=== PATIENT | male | born 1990 | race Two or more races ===

== ENCOUNTER 2022-03-27 13:26 | Emergency (ER) | payer MEDICAID, SELFPAY ==
--- NOTE | 2022-03-27 15:43 | ED_ITS ---
HPI - General Adult General Chief complaint: Skin/Abscess/Foreign Body Stated complaint: bump under left ear Time Seen by Provider: 03/27/22 15:43 Source: patient Mode of arrival: ambulatory Limitations: no limitations History of Present Illness HPI narrative: Patient is a 32 year old male presenting to the emergency department today with a left ear abscess. Patient states that since last , he has had swelling to the base of his left ear, causing pain. Patient states that it started as a small bump and it has now gotten bigger. Patient denies any dizziness, lightheadedness, abdominal pain, nausea, vomiting, fever, chills, blurry vision, double vision, loss of vision, chest pain, difficulty breathing, shortness of breath, back pain, night sweats, pain with urination, increased urinary f requency, increased urinary urgency, blood in his urine or stool, syncope or a near syncopal episode, recent trauma or falls, bowel incontinence, bladder incontinence, bowel retention, bladder retention, or any other complaints at this time. Onset (ago): day(s) (3) Severity: mild Severity scale (1-10): 3 Quality: aching Pain Consistency: constant Relieving factors: none Exacerbating factors: none Associated symptoms: denies other symptoms Treatments prior to arrival: none Related Data Previous Rx's Medication Instructions Recorded sulfamethoxazole 800 1 tab PO BID 7 days #14 tabs 03/27/22 mg-trimethoprim 160 mg tablet (Bactrim DS) Allergies Allergy/AdvReac Type Severity Reaction Status Date / Time doxycycline [DOXYCYCLINE] Allergy Unknown UNKNOWN Unverified 05/13/20 16:51 ibuprofen [IBUPROFEN] Allergy Unknown SWELLING Unverified 05/13/20 16:51 Penicillins Allergy Angioedema Verified 03/27/22 15:49 Review of Systems Constitutional: Constitutional: Reports no additional constitutional complaints, Denies chills, Denies fever(s) and Denies night sweats Eyes: Eyes: Reports no additional eye complaints, Denies blurry vision, Denies change in vision, Denies diplopia, Denies eye discharge, Denies loss of vision and Denies eye pain ENT: Denies dizziness Comments: abscess just below left ear Cardiovascular: Cardiovascular: Reports no additional cardiovascular complaints, Denies chest pain, Denies lightheadedness, Denies Loss of Consciousness and Denies dyspnea Respiratory: Respiratory: Reports no additional respiratory complaints and Denies dyspnea Gastrointestinal: Gastrointestinal: Reports no additional gastrointestinal complaints, Denies abdominal pain, Denies melena, Denies hematochezia, Denies change in bowel habits and Denies change in stool character Genitourinary: Genitourinary: Reports no additional male genitourinary complaints, Denies hematuria, Denies oliguria, Denies difficulty urinating, Denies dysuria, Denies urinary frequency, Denies urinary hesitancy, Denies urinary incontinence and Denies urinary urgency Musculoskeletal: Musculoskeletal: Reports no additional musculoskeletal complaints, Denies numbness and Denies tingling Neurologic: Denies dizziness, Denies loss of vision, Denies numbness and Denies tingling Psychiatric: Psychiatric: Reports no additional psychiatric complaints Endocrine: Endocrine: Reports no additional endocrine complaints Hematologic/Lymphatic: Hematologic/Lymphatic: Reports no additional hematologic/lymphatic complaints Allergic/Immunologic: Allergic/Immunologic: Reports no additional allergic/immunologic complaints PMFSH Past Medical History Attestation statement: The following information was validated with the patient. Source: old records reviewed Social History Social History Alcohol intake: current Alcohol intake frequency: holidays/special occasions only Patient Tobacco Use Status: Never used Tobacco Use of substances other than those prescribed or required for medical reasons: No Advance Directives: No Advance Directives Information Provided: No Physical Exam ED Vital Signs: Vital Signs - 24 hr 03/27/22 15:44 Temperature 97.6 F Pulse Rate 79 Respiratory Rate 16 Blood Pressure 116/65 Pulse Oximetry 99 Oxygen Delivery Method Room Air BMI result Body Mass Index 18.4 Const General: cooperative, no acute distress, alert and awake Nutritional Appearance: well nourished Orientation/consciousness: patient oriented x3 Limitations: no limitations [facility] Head: Yes normal to inspection and Yes atraumatic Ears: hearing grossly normal bilaterally and external ears normal General nose exam: Normal external nose present, no nasal discharge noted and no epistaxis Face and sinus: Yes normal facial exam, No abrasion and No laceration Mouth: Normal oral and palatal mucosa present, no drooling and no muffled voice Eyes General: appearance normal, both eyes and all related structures Periorbital: periorbital findings normal Eyelids: Yes eyelids normal Conjunctivae: conjunctivae normal Pupils: Equal, round and reactive pupils present EOM: EOMs intact bilaterally Neck Neck: Yes normal visual inspection, Yes full ROM and Yes no lymphadenopathy Chest Chest palpation & inspection: normal inspection of the chest Resp Effort & Inspection: normal respiratory effort and able to speak in complete sentences Auscultation: clear to auscultation bilaterally Cardio Rate: regular rate Rhythm: regular rhythm GI Inspection: Yes normal to inspection Skin Other: 2cm abscess present just inferior of the left ear lobe Neuro General: patient oriented x3 and moves all extremities Cranial nerves: Yes Equal, round and reactive pupils present Cognition (Neuro): normal cognition Motor exam (neuro): 5/5 motor strength present throughout Sensory Exam: Normal double simultaneous stimulation for sensation Coordination: [id number] test normal Extrem General: Yes normal to inspection, Yes full ROM and Yes capillary refill normal Psych Appearance: grossly normal Mental Status: mental status grossly normal Affect: normal affect Attitude: cooperative Thought process: Normal thought process present Thought content: Normal thought content present Insight: Good insight present (Psych) Procedures Abscess I/D Site: face Side (if applicable): left Local Anesthetic: lidocaine 1% Amount of anesthesia used (mL): 2 Technique: incised with blade Amount of fluid expressed (mL): 15 Sent for culture/gram staining?: No Irrigation: No Packing used?: none Medical Decision Making MDM Narrative Medical decision making narrative: Patient is a 32 year old male presenting to the emergency department today with a left ear abscess. Patient's physical exam showed a 2cm abscess just inferior of the left ear lobe. I explained my physical exam findings to the patient. I answered all questions asked by the patient. Patient's abscess was incised and drained, without incident. I stressed the importance of the patient taking his medication as prescribed. I stressed the importance of the patient following up with his primary care provider. I stressed the importance of the patient returning to the emergency department immediately if his symptoms were to worsen or if he were to develop any dizziness, shortness of breath, difficulty breathing, chest pain, blurry vision, loss of vision, nausea, vomiting, abdo natalie pain, fever, chills, back pain, or any other complaints. Patient verbalized agreement and understanding with this treatment plan and discharge. Differential Diagnosis Differential Diagnosis: ear abscess Medical Records Medical records reviewed: Yes I reviewed the patient's medical records. Discharge Plan Discharge Clinical Impression: Abscess Patient Disposition: Home, Self-Care Instructions: Abscess Incision and Drainage (DC) Additional Instructions: Follow up with your primary care provider. Return to the emergency department immediately if your symptoms worsen or if you develop any dizziness, shortness of breath, difficulty breathing, chest pain, blurry vision, loss of vision, nausea, vomiting, abdominal pain, fever, chills, back pain, or any other complaints. Prescriptions: New sulfamethoxazole-trimethoprim [Bactrim DS] 800-160 mg tablet 1 tab PO BID 7 Days Qty: 14 0RF Referrals: Dinora Sahu MD [Primary Care Provider] - Stand Alone Forms: Work/School Release Interventions: ED Discharge Assessment Last Done: 03/27/22 16:41 Discharge Date/Time: 03/27/22 16:42 Print Language: Kazakh
[2022-03-27 15:44] VITALS: BP 116/65; PULSE 79; RESP 16; TEMP 36.4; O2SAT 99; BMI 18.4
== END 2022-03-27 16:42 | disposition home or self-care (01) ==
PROVIDERS: Emergency Provider Emergency Medicine; PCP Internal Medicine
DX: H66.42 Suppurative otitis media, unspecified, left ear (principal); Z79.899 Other long term (current) drug therapy
CPT/HCPCS: 10060; 99283; 99284

== ENCOUNTER → 2022-07-05 14:05 | Outpatient (BNVA) | payer MEDICAID, SELFPAY | PROVIDERS: PCP Internal Medicine; Visit Provider Physician Assistant | DX: Z02.1 Encounter for pre-employment examination (principal) ==

== ENCOUNTER 2023-08-07 06:37 | Emergency (ER) | payer SELFPAY ==
[2023-08-07 06:41] VITALS: BP 124/78; PULSE 82; RESP 22; TEMP 36.6; O2SAT 100; BMI 19.2
--- NOTE | 2023-08-07 07:10 | PC.NURSE ---
Pt feels he is having an allergic reaction, to maybe something in his uber. Stable on RA, able to spek in full sentences
--- NOTE | 2023-08-07 07:12 | ED.ALLEREA ---
HPI - Allergic Reaction General Chief complaint: Allergic Reaction Stated complaint: ?Allergic Reaction Time Seen by Provider: 08/07/23 07:05 Source: patient and RN notes reviewed Mode of arrival: ambulatory Limitations: no limitations History of Present Illness HPI narrative: This is a 33-year-old male, with a history of hereditary angioedema, presenting to the emergency department for evaluation of itchy throat, chest tightness and shortness of breath since this morning. 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 He states that he immediately felt short of breath. He states that this feels like his previous allergic reactions he has had in the past. He has not taken any medications prior to his arrival. No other complaints or concerns at this time. MD complaint: allergic reaction and facial swelling Known history of allergy to: Cat and dog dander, ibuprofen, doxycycline, penicillin, prednisone Symptoms: difficulty swallowing, difficulty breathing and hoarseness Severity: moderate Treatment prior to arrival: none Previous Allergic Reaction History: angioedema Related Data Previous Rx's Medication Instructions Recorded sulfamethoxazole 800 1 tab PO BID 7 days #14 tabs 03/27/22 mg-trimethoprim 160 mg tablet (Bactrim DS) epinephrine 0.3 mg/0.3 mL 0.3 mg (0.3 mL) IM Q4H PRN 08/07/23 injection, auto-injector (EpiPen anaphylaxis #2 ea 2-Efra) Allergies Allergy/AdvReac Type Severity Reaction Status Date / Time doxycycline [DOXYCYCLINE] Allergy Unknown UNKNOWN Verified 08/07/23 07:18 ibuprofen [IBUPROFEN] Allergy Unknown SWELLING Verified 08/07/23 07:18 aspirin Allergy Angioedema Verified 08/07/23 07:18 cat dander [cats] Allergy Hives Verified 08/07/23 07:18 dog dander [dogs] Allergy Hives Verified 08/07/23 07:18 Penicillins Allergy Angioedema Verified 08/07/23 07:18 Review of Systems Review of Systems: Yes all other systems are reviewed and are negative Constitutional: Constitutional: Reports as per [facility] Social History Social History Alcohol intake: current Alcohol intake frequency: holidays/special occasions only Patient Tobacco Use Status: Never used Tobacco Smoked in Last 30 Days: No Advance Directives: No Advance Directives Information Provided: Yes Physical Exam ED Vital Signs: Vital Signs - 24 hr 08/07/23 06:41 08/07/23 10:00 Temperature 97.9 F Pulse Rate 82 Respiratory Rate 22 H Blood Pressure 124/78 128/72 Pulse Oximetry 100 100 Oxygen Delivery Method Room Air Room Air BMI result Body Mass Index 19.2 Const General: cooperative, comfortable and no acute distress Orientation/consciousness: patient oriented x3 Limitations: no limitations HENMT Other: Airway patent. no tongue edema, no oropharyngeal edema noted Head: Yes normal to inspection, Yes normocephalic and Yes atraumatic Ears: hearing grossly normal bilaterally General nose exam: Normal external nose present Face and sinus: Yes normal facial exam Mouth: Normal oral and palatal mucosa present, oropharynx normal and moist mucous membranes Throat: Yes posterior oropharynx normal Eyes General: appearance normal, both eyes and all related structures Eyelids: Yes eyelids normal Conjunctivae: conjunctivae normal Sclerae: sclerae normal Pupils: Equal, round and reactive pupils present EOM: EOMs intact bilaterally Neck Neck: Yes normal visual inspection, Yes full ROM and Yes no lymphadenopathy Lymphatic: no lymphadenopathy noted Chest Chest palpation & inspection: normal inspection of the chest Resp Effort & Inspection: normal respiratory effort and able to speak in complete sentences Auscultation: clear to auscultation bilaterally, no crackles, no rales, no rhonchi and no wheezes Cardio Rate: regular rate Rhythm: regular rhythm Heart sounds: S1 normal heart sound present and S2 normal heart sound present GI Inspection: Yes normal to inspection Skin General skin exam: no rashes or lesions noted Trauma: no lacerations or abrasions Wounds: no wounds Neuro General: patient oriented x3 and moves all extremities Cranial nerves: Yes Equal, round and reactive pupils present Extrem General: Yes normal to inspection Right upper extremity: normal to inspection Left upper extremity: normal to inspection Right lower extremity: normal to inspection Left lower extremity: normal to inspection Course Reevaluation(s) Reevaluation #1: Patient asleep, resting comfortably, on her no acute distress. Will continue to monitor Time: 07:43 Reevaluation #2: Patient re-evaluated, feeling much better, lungs clear to auscultation bilaterally, airway patent. Patient feels well and is feeling comfortable to go home. Patient has a ride home from his fiancee. Patient stable for discharge. Time: 09:41 Medications Administered Discontinued Medications Generic Name Dose Route Start Last Admin Trade Name Emmanuel PRN Reason Stop Dose Admin Diphenhydramine HCl 50 mg 08/07/23 07:11 08/07/23 07:18 Diphenhydramine Hcl 50 Mg/Ml Vial IVPUSH 08/07/23 07:12 50 mg ONCE ONE Administration Famotidine 20 mg 08/07/23 07:11 08/07/23 07:18 Famotidine/Pf 20 Mg/2 Ml Vial IVPUSH 08/07/23 07:12 20 mg ONCE ONE Administration Medical Decision Making Medical Decision Making MDM Narrative: This is a 33-year-old male, with history of hereditary angioedema, presenting to the emergency department for evaluation of allergic reaction. He states that while he was taken liver to work in this morning is exposed to dogs and cat dander. He feels as though his throat is itchy is feeling short of breath. Patient is speaking in full sentences, however patient reporting hoarseness in his voice. On arrival, vital signs within normal limits, respirations 22 per minute. Lungs are clear to auscultation. Plan: IV Benadryl, IV Pepcid. Patient reports allergy to prednisone. Differential Diagnosis Differential Diagnoses: The differential diagnosis associated with the presentation includes Allergic reaction, angioedema, anaphylaxis, anxiety Discharge Plan Discharge Clinical Impression: Allergic reaction Patient Disposition: Home, Self-Care Instructions: General Allergic Reaction (ED) Additional Instructions: Your seen in the emergency department after having allergic reaction. You were given Benadryl and pepcid. Please drink plenty of fluids and get plenty of rest. Monitor symptoms closely. 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 If any new or worsening symptoms occur including but not limited to throat swelling, difficulty breathing or swallowing, please immediately reports to the emergency room. I am also giving you a medication refill for your EpiPen. Please use as prescribed and as needed. Also giving your referral to [employer] electrical logging operator, call to make an appointment. Prescriptions: New epinephrine [EpiPen 2-Efra] 0.3 mg/0.3 mL auto-injector 0.3 mg IM Q4H PRN (Reason: anaphylaxis) Qty: 2 0RF No Action sulfamethoxazole-trimethoprim [Bactrim DS] 800-160 mg tablet 1 tab PO BID 7 Days Qty: 14 0RF Referrals: Daljit Araujo MD [Physician] - Stand Alone Forms: Work/School Release Interventions: ED Discharge Assessment Last Done: 08/07/23 10:06 Discharge Date/Time: 08/07/23 10:06
[2023-08-07] MEDS: Famotidine/PF 20 MG/2 ML VIAL IVPUSH (07:18)
[2023-08-07] MEDS: diphenhydrAMINE HCL 50 MG/ML VIAL IVPUSH (07:18)
[2023-08-07 10:00] VITALS: BP 128/72; O2SAT 100
== END 2023-08-07 10:06 | disposition home or self-care (01) ==
PROVIDERS: Emergency Provider Emergency Medicine Emergency Medical Services; PCP Internal Medicine
DX: L50.0 Allergic urticaria (principal); Z79.899 Other long term (current) drug therapy
CPT/HCPCS: 96374; 96375; 99284; J1200

== ENCOUNTER 2023-12-22 06:14 | Emergency (ER) | payer SELFPAY ==
[2023-12-22 06:18] VITALS: BP 114/78; PULSE 93; RESP 14; TEMP 36; O2SAT 99; BMI 18.8
--- NOTE | 2023-12-22 06:52 | ED_ITS ---
HPI - Eye Problem General Chief complaint: Eye Problems Stated complaint: Eye swelling Time Seen by Provider: 12/22/23 06:32 Source: patient Mode of arrival: ambulatory Limitations: no limitations History of Present Illness HPI Narrative: 33 yo male with history of angioedema presents to the ER for evaluation of left upper eyelid swelling and pain for the last 6 days. He states it started as a small stye and has gotten worse despite using warm compresses to the area. He has not been able to wear his contacts for the last 5 days. He has worsening upper lid swelling, foreign body sensation and irritation of the eye. No vision changes. He woke up with crusting and worsening swelling this morning. No history of trauma. MD chief complaint: eye pain, eye redness and foreign body Onset (ago): day(s) (6) Onset description: gradual Duration: constant Location: left eye Eye Symptoms: redness, pain, foreign body sensation and discharge Place: home Mechanism: none Severity: moderate If Pain, Quality: aching and throbbing Context: contact lens use Associated symptoms: none Treatments Prior to Arrival: other (warm compresses) Related Data Previous Rx's ?Medication ?Instructions ?Recorded sulfamethoxazole 800 1 tab PO BID 7 days #14 tabs 03/27/22 mg-trimethoprim 160 mg tablet (Bactrim DS) epinephrine 0.3 mg/0.3 mL 0.3 mg (0.3 mL) IM Q4H PRN 08/07/23 injection, auto-injector (EpiPen anaphylaxis #2 ea 2-Efra) erythromycin 5 mg/gram (0.5 %) eye 0.5 inch ophthalmic (eye) BID #3.5 12/22/23 ointment grams sulfamethoxazole 400 1 tab PO BID #14 tabs 12/22/23 mg-trimethoprim 80 mg tablet (Bactrim) Allergies Allergy/AdvReac Type Severity Reaction Status Date / Time doxycycline [DOXYCYCLINE] Allergy Unknown UNKNOWN Verified 12/22/23 06:21 ibuprofen [IBUPROFEN] Allergy Unknown SWELLING Verified 12/22/23 06:21 aspirin Allergy Angioedema Verified 12/22/23 06:21 cat dander [cats] Allergy Hives Verified 12/22/23 06:21 dog dander [dogs] Allergy Hives Verified 12/22/23 06:21 Penicillins Allergy Angioedema Verified 12/22/23 06:21 Review of Systems Review of Systems: Yes all other systems are reviewed and are negative [facility] Social History Social History Alcohol intake: current Alcohol intake frequency: holidays/special occasions only Patient Tobacco Use Status: Never used Tobacco Advance Directives: No Advance Directives Information Provided: Yes Do you have a plan to hurt others: No Plan Physical Exam Vital Signs: Vital Signs: Last Vital Signs Temp 96.8 F 12/22/23 06:18 Pulse 93 12/22/23 06:18 Resp 14 12/22/23 06:18 BP 114/78 12/22/23 06:18 Pulse Ox 99 12/22/23 06:18 O2 Del Method Room Air 12/22/23 06:18 BMI result Body Mass Index 18.8 Appearance: Alert. Oriented X3. No acute distress. Head: normocephalic, atraumatic. Eyes: left upper eyelid with moderate generalized swelling, warmth and erythema, tender. no visible pustule upon eversion of the lid. scleral injection on the left. EOMI without pain. PERRLA. +small linear corneal abrasion at 9.oclock on fluoroscene exam ENT: Pharynx normal. No tonsillar swelling or exudate. Neck: Normal inspection. Neck supple. CVS: Normal heart rate and rhythm. Pulses normal. Respiratory: No respiratory distress. Breath sounds normal. Skin: Skin warm and dry. Normal skin color. Normal skin turgor. No rashes. Extremities: No lower extremity edema. No joint swelling. Neuro/psych: Oriented X 3. No motor deficit. No sensory deficit. CN II-XII intact. Normal speech and cognition. Medical Decision Making Medical Decision Making MDM Narrative: 33 yo male with history of angioedema presents w/ left upper eyelid swelling, eye pain and FB sensation. small abrasion on fluroroscein exam. no pustule on eversion of the upper lid. no pain w/ extraocular movement. no vision impairment , fever, diplopia. exam and clincial presentation are c/w preseptal cellulitis. no evidence of orbital cellulitis at this time. will treat with PO abx - allergy to PCN, doxy. cross reactivity w/ levaquin to aspirin (angioedema w/ this). spoke w/ pharmacy and there does not seem to be a true cross reactivity however given his history will treat w/ PO bactrim which he has tolerated in the past. patient given strict return precautions. stable for d/c home. Differential Diagnosis Differential Diagnoses: The differential diagnosis associated with the presentation includes internal hordeolum, external hordeolum, preseptal cellulitis, orbital cellulitis Admission/Observation Consideration of admission/observation: Escalation of care including admission/observation considered at this time presentation is c/w preseptal cellulitis and NOT orbital cellulitis so he can be safely discharged home w/ PO abx and close monitoring of symptoms External Record Review External record reviewed: Outpatient record and Prior outpatient labs Tests considered The following testing was considered but not selected: considered lab workup Prescription Management I considered prescription management with: Pain Medication Chronic Conditions Patient?s care impacted by: Other (angioedema) Critical Care Time Critical Care Time Critical Care Time: No Discharge Plan Discharge Clinical Impression: Preseptal cellulitis of left upper eyelid Internal hordeolum of left eye Qualifiers: Eyelid: upper Qualified Code(s): H00.024 - Hordeolum internum left upper eyelid Patient Disposition: Home, Self-Care Instructions: Cellulitis (DC), Stye (ED) Additional Instructions: Take the prescribed antibiotics as directed, complete the entire course and do not miss any doses Use the prescribed antibiotic ointment 2 times per day for 1 week Continue to use warm compresses to your left eye several times per day, once per hour if you can If you develop new or worsening symptoms call 911 or come back to the ER for further evaluation. Prescriptions: New sulfamethoxazole-trimethoprim [Bactrim] 400-80 mg tablet 1 tab PO BID Qty: 14 0RF erythromycin 5 mg/gram (0.5 %) ointment 0.5 inch ophthalmic (eye) BID Qty: 3.5 0RF No Action sulfamethoxazole-trimethoprim [Bactrim DS] 800-160 mg tablet 1 tab PO BID 7 Days Qty: 14 0RF epinephrine [EpiPen 2-Efra] 0.3 mg/0.3 mL auto-injector 0.3 mg IM Q4H PRN (Reason: anaphylaxis) Qty: 2 0RF Referrals: Fred Rai MD [Primary Care Provider] - Stand Alone Forms: Work/School Release Print Language: Persian
[2023-12-22] MEDS: Tetracaine HCl/PF 0.5% Oph Sol 4 ML DROPS 1 DROP EYE-LEFT (07:50)
[2023-12-22] MEDS: Fluorescein Sodium STRIP 1 STRIP EYE-LEFT (07:50)
[2023-12-22 07:55] VITALS: BP 112/66; PULSE 72; RESP 16; TEMP 36.6; O2SAT 99
[2023-12-22 07:56] VITALS: BP 112/66; PULSE 72; RESP 16; TEMP 36.6; O2SAT 99
== END 2023-12-22 07:58 | disposition home or self-care (01) ==
PROVIDERS: Emergency Provider Student in an Organized Health Care Education/Training Program; PCP Internal Medicine
DX: L03.213 Periorbital cellulitis (principal); H00.024 Hordeolum internum left upper eyelid
CPT/HCPCS: 99283; 99284

== ENCOUNTER 2025-07-03 13:54 | Emergency (ER) | payer SELFPAY ==
[2025-07-03 14:33] VITALS: BP 103/75; PULSE 95; RESP 15; TEMP 37.4; O2SAT 97; BMI 17.7
--- NOTE | 2025-07-03 14:38 | ED.DENTAL ---
HPI - Dental/Oral General Chief complaint: Dental/Oral Stated complaint: tooth issue Time Seen by Provider: 07/03/25 14:37 Source: patient and RN notes reviewed Mode of arrival: ambulatory Limitations: no limitations History of Present Illness ED Provider: Amanda Uribe PA-C HPI Narrative: This is a 35-year-old male who presents emergency department with concerns of right upper wisdom tooth pain for the last week. He also endorses some mild swelling to the right side of his face. He has been taking [id number] Tylenol for his symptoms which has provided him without much relief. He states that he is allergic to all NSAIDs. He denies any known fevers or chills. He is still able to swallow without difficulty. He has a dentist whom he can follow-up with. No other complaints or concerns at this time. MD Complaint: tooth pain Location: Tooth # (1) Onset (ago): day(s) Duration: constant Relieving factors: nothing Exacerbating factors: nothing Treatment prior to arrival: none Related Data Previous Rx's ?Medication ?Instructions ?Recorded sulfamethoxazole 800 1 tab PO BID 7 days #14 tabs 03/27/22 mg-trimethoprim 160 mg tablet (Bactrim DS) epinephrine 0.3 mg/0.3 mL 0.3 mg (0.3 mL) IM Q4H PRN 08/07/23 injection, auto-injector (EpiPen anaphylaxis #2 ea 2-Efra) erythromycin 5 mg/gram (0.5 %) eye 0.5 inch ophthalmic (eye) BID #3.5 12/22/23 ointment grams sulfamethoxazole 400 1 tab PO BID #14 tabs 12/22/23 mg-trimethoprim 80 mg tablet (Bactrim) acetaminophen 500 mg tablet 500 mg PO Q6H PRN pain #30 tabs 07/03/25 (Tylenol Extra Strength) clindamycin HCl 300 mg capsule 300 mg PO TID 7 days #21 caps 07/03/25 (Cleocin HCl) Allergies Allergy/AdvReac Type Severity Reaction Status Date / Time doxycycline (DOXYCYCLINE) Allergy Unknown UNKNOWN Verified 12/22/23 06:21 ibuprofen (IBUPROFEN) Allergy Unknown SWELLING Verified 12/22/23 06:21 amoxicillin Allergy Angioedema Verified 07/03/25 14:35 aspirin Allergy Angioedema Verified 12/22/23 06:21 cat dander (cats) Allergy Hives Verified 12/22/23 06:21 dog dander (dogs) Allergy Hives Verified 12/22/23 06:21 Penicillins Allergy Angioedema Verified 12/22/23 06:21 Review of Systems Review of Systems: Constitutional : No Fever, No Chills ENT/Mouth : No sore throat, No Rhinorrhea Eyes: No Eye Pain, No Swelling, No Redness Cardiovascular : No Chest Pain, No SOB Respiratory : No Cough, No Sputum Gastrointestinal : No Nausea, No Vomiting, No Diarrhea, No abdominal Pain Genitourinary : No Dysuria, No Hematuria Musculoskeletal : No joint pain, No Myalgias, No Joint Swelling Skin : No Skin Lesions Neuro : No Weakness, No Numbness, No Headache All other systems reviewed and are negative Yes all other systems are reviewed and are negative Constitutional: Constitutional: Reports as per [facility] Social History Social History Alcohol intake: current Alcohol intake frequency: holidays/special occasions only Patient Tobacco Use Status: Never used Tobacco Advance Directives: No Advance Directives Information Provided: Yes Physical Exam Vital Signs: Vital Signs: Last Vital Signs Temp 99.3 F 07/03/25 15:03 Pulse 95 07/03/25 15:03 Resp 15 07/03/25 15:03 BP 103/75 07/03/25 15:03 Pulse Ox 97 07/03/25 15:03 O2 Del Method Room Air 07/03/25 15:03 BMI result Body Mass Index 17.7 Const: General: cooperative, comfortable and no acute distress Orientation/consciousness: patient oriented x3 Limitations: no limitations HEENT: Other: Tooth 1 in poor repair, no surrounding gingival fluctuance, tender to palpation. No drainage. No trismus, drooling, or dysphonia. Head: Yes normal to inspection, Yes normocephalic and Yes atraumatic Ears: hearing grossly normal bilaterally General nose exam: Normal external nose present Face and sinus: Yes normal facial exam Mouth: Normal oral and palatal mucosa present, oropharynx normal and moist mucous membranes Throat: Yes posterior oropharynx normal Eyes: General: appearance normal, both eyes and all related structures Eyelids: Yes eyelids normal Conjunctivae: conjunctivae normal Sclerae: sclerae normal Pupils: Equal, round and reactive pupils present EOM: EOMs intact bilaterally Neck: Neck: Yes normal visual inspection, Yes full ROM and Yes no lymphadenopathy Lymphatic: no lymphadenopathy noted Chest: Chest palpation & inspection: normal inspection of the chest Resp: Effort & Inspection: normal respiratory effort and able to speak in complete sentences Auscultation: clear to auscultation bilaterally, no crackles, no rales, no rhonchi and no wheezes Cardio: Rate: regular rate Rhythm: regular rhythm Heart sounds: S1 normal heart sound present and S2 normal heart sound present GI: Inspection: Yes normal to inspection Skin: General skin exam: no rashes or lesions noted Trauma: no lacerations or abrasions Wounds: no wounds Neuro: General: patient oriented x3 and moves all extremities Cranial nerves: Yes Equal, round and reactive pupils present Extrem: General: Yes normal to inspection Right upper extremity: normal to inspection Left upper extremity: normal to inspection Right lower extremity: normal to inspection Left lower extremity: normal to inspection Medical Decision Making Medical Decision Making MDM Narrative: This is a 35-year-old male who presents emergency department with complaints of right upper dental pain and swelling for the last week. Patient with tooth 1 In poor dental repair, no surrounding gingival abscess. Patient with multiple drug allergies, discharged on clindamycin. Urged the importance of following up with a dentist. He understands and agrees with plan. Given strict return precautions. Patient stable for discharge. Differential Diagnosis Differential Diagnoses: The differential diagnosis associated with the presentation includes Dental abscess, dental decay, dental fracture, dental pain Discharge Plan Discharge Clinical Impression: Toothache, Fracture of tooth Patient Disposition: Home, Self-Care Instructions: Toothache (ED) Additional Instructions: You were seen in the emergency department due to dental pain. You have a dental infection requiring antibiotic treatment. Take prescribed antibiotic, please finish the entire course even if your symptoms improve. Please continue taking Tylenol. You may take Tylenol 500 milligrams every 6-8 hours. Do not exceed Tylenol 4000 milligrams in a 24 hour period. You need to follow-up with a dentist, please call today to make an appointment. If any new or worsening symptoms occur including but not limited to inability to open or close your draw, high fevers not responding to Tylenol, worsening swelling, difficulty breathing or swallowing, please seek emergent care. Prescriptions: New clindamycin HCl [Cleocin HCl] 300 mg capsule 300 mg PO TID 7 Days Qty: 21 0RF acetaminophen [Tylenol Extra Strength] 500 mg tablet 500 mg PO Q6H PRN (Reason: pain) Qty: 30 0RF No Action sulfamethoxazole-trimethoprim [Bactrim DS] 800-160 mg tablet 1 tab PO BID 7 Days Qty: 14 0RF epinephrine [EpiPen 2-Efra] 0.3 mg/0.3 mL auto-injector 0.3 mg IM Q4H PRN (Reason: anaphylaxis) Qty: 2 0RF sulfamethoxazole-trimethoprim [Bactrim] 400-80 mg tablet 1 tab PO BID Qty: 14 0RF erythromycin 5 mg/gram (0.5 %) ointment 0.5 inch ophthalmic (eye) BID Qty: 3.5 0RF Stand Alone Forms: Work/School Release Interventions: ED Discharge Assessment Last Done: 07/03/25 15:03 Discharge Date/Time: 07/03/25 15:04 Print Language: [place] Islander
[2025-07-03 15:03] VITALS: BP 103/75; PULSE 95; RESP 15; TEMP 37.4; O2SAT 97
--- OUTSIDE RECORDS SUMMARY | 2025-07-03 16:11 | XMS_ITS | Encounter Summary ---
Author Organization [employer] Address [address] [facility] [address] [place] [address] Care Team Providers Care Fire Chief Deputy Name Role Phone Fred Rai MD Primary Care Prov ider Reason for Visit * Reason Comments Med Refill Encounter Details Date Type Department Care Team ([facility] st Contact Info) Description 12/13/2023 Refill [facility] [address] [place], [place] [phone] Alexandra Zavaleta MD [address] [place], [place] [phone] Uncomplicated opioid dependence (CMS/HCC) Social History Tobacco Use Types Packs/Day Years Used Date Smoking Tobacco: Former Cigarettes Q uit: 07/2023 Depression Answer Date Recorded Patient Health Questionnaire-9 Score 0 12/05/2023 Patient Health Questionnaire-9 Score 0 12/05/2023 Last PHQ-9: Questionnaire Data Not on file 0 12/05/2023 Housing Stability Answer Date Recorded What is your housing situation today? I have lisa phillips 12/05/[address] you li ve. Do you have problems with any of the following? None of the above 12/05/2023 Food Insecurity Answer Date Recorded Within the past 12 months, y ou worried that your food would run out before you got money to buy more: Never True 12/05/2023 Within the past 12 months,th e food you bought just didn't last and you didn't have enough money to get more: Never True 05/2024 Transportation Answer Date Recorded In the past 12 months, has l ack of transportation kept you from medical appts, meetings, work or from getting things needed for daily living? No 12/05/2023 Utilities Answer Date Recorded In the past 12 months, has t he electric, gas, oil or water company threatened to shut off services in your home? No 12/05/2023 Depression Answer Date Recorded Patient Health Questionnaire-2 Score 0 12/05/2023 Sex and Gender Information Value Date Recorded Sex Assigned at Male 06/26/2022 10:31 AM EDT Legal Sex Male 10:31 AM EDT Gender Identity Male 06/26/2022 10:31 AM EDT Sexual Orientation Straight 06/26/2022 10 :31 AM EDT documented as of this encounter Plan of Treatment Not on file documented as of this encounter Visit Diagnoses Diagnosis Uncomplicated opioid dependence (CMS/HCC) (HCC) documented in this encounter Additional Health Concerns Assessment Noted Time PHQ-9 Depression Total Score: 0 12/05/19 24 11:50 AM EDT documented as of this encounter Care Teams Fire Chief Deputy Relationship Specialty Start Date End Date Fred Rai MD [address] [place] [id number] PCP - General Internal Medicine 10/20/19 documented as of this encounter
--- OUTSIDE RECORDS SUMMARY | 2025-07-03 16:11 | XMS_ITS | Clinical Summary ---
Author Organization [employer] Address [address] [facility] 7[address] [place] [address] Care Team Providers Care Trial Judge Name Role Phone Fred Rai MD Primary Care Prov ider Allergies Active Allergy Reactions Criticality Noted Date Comments Cephalexin Rash Low 08/29/2022 Doxycycline Rash Low 08/29/2022 Shellfish Protein-Containing Drug Products Angioedema 12/28/2022 Medications Buprenorphine HCl-Naloxone HCl (Suboxone) 8-2 MG SL filmIndications: Uncomplicated opioid dependence (CMS/HCC) (HCC) Place 2 Film under the tongue Once per day. 56 Film 1 02/05/2024 Active Active Problems Problem Noted Date Diagnosed Date Angioedema 02/01/2019 Assessment & Plan (12/05/2023 7:54 PM EDT): Patient with hx of angioedema, recent ER visit due to allergic reaction. Patient requesting [place] paperwork, will fill it out. Social History Tobacco Use Types Packs/Day Years Used Date Smoking Tobacco: Former Cigarettes Q uit: 07/2023 Tobacco Cessation:Counseling Given: Not Answered Depression Answer Date Recorded Patient Health Questionnaire-9 [...] the past 12 months, has t he [employer], [employer], oil or water company threatened to shut off services in your home? No 12/05/2023 Depression Answer Date Recorded Patient Health Questionnaire-2 Score 0 12/05/2023 Sex and Gender Information Value Date Recorded Sex Assigned at Male 06/26/2022 10:31 AM EDT Legal Sex Male 10:31 AM EDT Gender Identity Male 06/26/2022 10:31 AM EDT Sexual Orientation Straight 06/26/2022 10 :31 AM EDT Last Filed Vital Signs Vital Sign Reading Time Taken Comments Blood Pressure 127/75 12/05/2023 11:48 AM EDT Pulse 80 12/05/2023 11:48 AM EDT Temperature 36.8 C (98.2 F) 12/05/2023 11:48 AM EDT Respiratory Rate 20 12/05/2023 11:48 AM EDT Oxygen Saturation - - Inhaled Oxygen Concentration - - Weight 56.2 kg (124 lb) 12/05/2023 11:48 AM EDT Height 167.6 cm (5' 6 ) 12/05/2023 11:48 AM EDT Body Mass Index 20.01 12/05/2023 11:48 AM EDT Plan of Treatment Health Maintenance Due Date Last Done Comments HIV Screening 1992 Disability Screening 1992 Alcohol/Substance Use Screening 2004 Tobacco Screening 2004 Family Planning (PISQ) 01/14/2007 HPV Vaccines (1 - Male 3-dose series) 01/14/2007 Hepatitis C Screening 01/14/2010 Depression Screening 12/04/2024 12/05/2023, 12/05/19 24 SDOH Screening 12/04/2024 12/05/2023 COVID-19 Vaccine ( season) 2025 Influenza Vaccine (#1) 2025 9, 07/20/2009, 07/29/2003 DTaP/Tdap/Td Vaccines (7 - Td or Tdap) 04/26/2027 04/26/2017, 04/21/2005, 01/16/1996, Additional history exists Zoster Vaccines (1 of 2) 01/14/2042 RSV Patients and Patients Aged 60 years or older (1 - 1-dose 75+ series) 01/14/2067 IPV Vaccines Completed 01/16/1996, 10/2 08/1992, 1992, Additional history exists Hepatitis B Vaccines Completed 04/21/2005, 12/16/2001, 11/15/2001 Meningococcal Vaccine Completed 11/20/2008 Hepatitis A Vaccines Aged Out 05/08/2019 No long er eligible based on patient's age to complete this topic HIB Vaccines Aged Out No longer eligi ble based on patient's age to complete this topic Meningococcal B Vaccine Aged Out No l onger eligible based on patient's age to complete this topic Pneumococcal Vaccine: Pediatrics (0 to 5 Years) and At-Risk Patients (6 to 49) Years Aged Out No longer eligible based on patient's age to complete this topic RSV under 20 months Aged Out No longe r eligible based on patient's age to complete this topic Rotavirus Vaccines Aged Out No longer eligible based on patient's age to complete this topic Care Teams Trial Judge Relationship Specialty Start Date End Date StroudFred Santillan MD [address] [place] [id number] PCP - General Internal Medicine 10/20/19
--- OUTSIDE RECORDS SUMMARY | 2025-07-03 16:11 | XMS_ITS | Encounter Summary ---
Author Organization [employer] Address [address] [facility] 7 [place] [address] Care Team Providers Care Hay Rake Operator Name Role Phone Fred Rai MD Primary Care Prov ider Reason for Visit * Reason Onset Date Comments Call Back Request 12/06/2023 Encounter Details Date Type Department Care Team ([facility] st Contact Info) Description 12/06/2023 Telephone [facility] MEDICINE [address] [place] [address] Fred Rai MD [address] [place], [place] [phone] Call Back Request Social History Tobacco Use Types Packs/Day Years [...] AM EDT documented as of this encounter Miscellaneous Notes * Telephone Encounter - Wing Norah RN - 12/07/2023 10:55 AM EDT Please advise. Tc to pt regarding recent PCP visit. Pt states that he is worried about his feet andknee swelling that is bad enough that he can't work sometimes. Pt also reports dark spots, one on the right foot and two on the left foot that are the size of a dime. The spots on the left foot are seed sorter pigmented. Nothing about the spots noted in last visit notes. Pt is seeing allergy specialistsoon but is wondering if there are any other referrals PCP can send as pt and family is really worried about the angioedema and what is causing it. Stated to pt that would message provider and would have a nurse call back as to next steps. Also told pt to call back in a week if he hears nothing. Pt verbalized understanding and agreement with plan. * Telephone Encounter - Wing Norah RN - 12/07/2023 9:06 AM EDT Tc to pt regarding concerns from last visit, unable to reach pt. Left message for pt to call back. * Telephone Encounter - Misbah Day - 12/06/2023 9:36 AM EDT Tc from pt requesting call back regarding concerns from last visit. Please contact pt at [phone]. documented in this encounter Plan of Treatment Not on file documented as of this encounter Visit Diagnoses Not on filedocumented in this encounter Additional Health Concerns Assessment Noted Time PHQ-9 Depression Total Score: 0 12/05/19 11:50 AM EDT documented as of this encounter Care Teams Hay Rake Operator Relationship Specialty Start Date End Date StroudFred Santillan MD [address] [place] [id number] PCP - General Internal Medicine 10/20/19 documented as of this encounter
--- OUTSIDE RECORDS SUMMARY | 2025-07-03 16:11 | XMS_ITS | Clinical Summary ---
Author Organization [facility] Address [address] [place] [phone] Phone Care Team Providers Care Sociocultural Anthropology Professor Name Role Phone Mary Calixto MD Primary Care Provider Unavailabl e Immunizations Immunization Administration Dates Next Due DTP 01/16/1996, 3,01/06/1993,07/11,1992 H1N1 07/20/2009 Hep B, ped/adol 04/21/2005,12/16/2001,11/15/2001 Influenza, injectable, trivalent 07/29/2003 MMR 03/26/1996,06/16/1993 Meningococcal Conj (Menactra) MCV4P 11/20/2008 OPV 01/16/1996, 3,1992,03/31 Td (adult) (MBL), 2 Lf tetan us toxoid, PF, adsorbed 04/21/2005 Varicella 11/20/2008,04/19/1999 Social History Tobacco Use Types Packs/Day Years Used Date Smoking Tobacco: Never Assessed Sex and Gender Information Value Date Recorded Sex Assigned at Not on file Legal Sex Male 4:28 PM EDT Gender Identity Not on file Sexual Orientation Not on file Last Filed Vital Signs Vital Sign Reading Time Taken Comments Blood Pressure - - Pulse - - Temperature 36.3 C (97.3 F) 12/11/2009 12:00 AM EDT Respiratory Rate - - Oxygen Saturation 97% 12/11/2009 12:00 AM EDT Inhaled Oxygen Concentration - - Weight 57.2 kg (126 lb) 12/11/2009 12:00 AM EDT Height 172.7 cm (5' 8 ) 12/10/2009 12:00 AM EDT Body Mass Index 19.16 12/10/2009 12:00 AM EDT Plan of Treatment Health Maintenance Due Date Last Done Comments DTaP,Tdap,and Td Vaccines (6 - Tdap) 04/22/2005 04/21/2005, 01/16/1996, 06/16/1993, Additional history exists HPV Vaccines (1 - 3-dose SCDM series) 01/14/2019 Influenza Vaccines (#1) 2025 07/29/2003 COVID-19 Vaccine (2024- season) 2025 IPV Vaccines Completed 01/16/1996, 05/28, 1992, Additional history exists MMR Vaccines Completed 03/26/1996, 06/16/1993 Hepatitis B Vaccines Completed 04/21/2005, 12/16/2001, 11/15/2001 Meningococcal Vaccine Completed 11/20/2008 Varicella Vaccines Completed 11/20/2008, 04/19/1999 HIB Vaccines Aged Out No longer eligi ble based on patient's age to complete this topic Hepatitis A Vaccines Aged Out No long er eligible based on patient's age to complete this topic Men B Vaccine Aged Out No longer elig ible based on patient's age to complete this topic Pneumococcal Vaccine Aged Out No long er eligible based on patient's age to complete this topic Care Teams Sociocultural Anthropology Professor Relationship Specialty Start Date End Date Mary Calixto MD PCP - General 04/06/17
--- OUTSIDE RECORDS SUMMARY | 2025-07-03 16:11 | XMS_ITS | Encounter Summary ---
Author Organization [employer] Address [address] [place] [address] [address] [place] [address] Care Team Providers Care Piler Name Role Phone Fred Rai MD Primary Care Prov ider Reason for Visit * Reason Comments Med Refill Encounter Details Date Type Department Care Team ([facility] st Contact Info) Description 02/12/2023 Refill [facility] MEDICINE [address] [place] [address] Ilene Patel MD [address] [place] [address] Uncomplicated opioid dependence (CMS/HCC) Social History Tobacco [...] dependence (CMS/HCC) (HCC) documented in this encounter Care Teams Piler Relationship Specialty Start Date End Date Fred Rai MD [address] [place] [address] PCP - General Internal Medicine 10/20/19 documented as of this encounter
--- OUTSIDE RECORDS SUMMARY | 2025-07-03 16:12 | XMS_ITS | Encounter Summary ---
Author Organization [facility] Address [address] [place] [phone] Phone Care Team Providers Care Dish Person Name Role Phone Mary Calixto MD Primary Care Provider Unavailabl e Encounter Details Date Type Department Care Team (Late st Contact Info) Description 04/12/2017 Conversion Encounter [facility] - [address] [address] Social History Tobacco Use Types Packs/Day Years Used Date Smoking Tobacco: Never Assessed Sex and Gender Information Value Date Recorded Sex Assigned at Not on file Legal Sex Male 4:28 PM EDT Gender Identity Not on file Sexual Orientation Not on file documented as of this encounter Plan of Treatment Not on file documented as of this encounter Visit Diagnoses Not on filedocumented in this encounter Care Teams Dish Person Relationship Specialty Start Date End Date Mary Calixto MD PCP - General 04/06/17 documented as of this encounter
--- OUTSIDE RECORDS SUMMARY | 2025-07-03 16:12 | XMS_ITS | Encounter Summary ---
Author Organization [facility] Address [address] [place] [phone] Phone Care Team Providers Care Gusset Stitcher Name Role Phone Mary Calixto MD Primary Care Provider Unavailabl e Encounter Details Date Type Department Care Team (Late st Contact Info) Description 01/04/2010 Documentation [facility] [address] [place] [address] Family Medicine, Physician [facility] [place] [place], [place] [phone] Social History Tobacco Use Types Packs/Day Years [...] on filedocumented in this encounter Care Teams Gusset Stitcher Relationship Specialty Start Date End Date Mary Calixto MD PCP - General 04/06/17 documented as of this encounter
== END 2025-07-03 15:04 | disposition home or self-care (01) ==
PROVIDERS: Emergency Provider Emergency Medicine Emergency Medical Services; PCP Internal Medicine
DX: K08.89 Other specified disorders of teeth and supporting structures (principal)
CPT/HCPCS: 99282; 99283